=== PATIENT | male | born 1960 | race Caucasian/White ===

== ENCOUNTER 2019-08-04 21:19 | Observation (INO) | payer OTHER ==
[~2019-08-04] VITALS: Ht 185.5 cm; Wt 110.6 kg
[2019-08-04] MEDS ORDERED: NITROGLYCERIN 0.4 MG SL TABS BTL 25'S SL ONE (21:38)
[2019-08-04] MEDS ORDERED: ASPIRIN 81 MG CHEW (CHILDREN'S ASA) ONE (21:38)
[2019-08-04] MEDS: NITROGLYCERIN 0.4 MG SL TABS BTL 25'S SL PRN ×3 (21:43→21:53)
[2019-08-04] MEDS ORDERED: ASPIRIN 81 MG CHEW (CHILDREN'S ASA) PO ONE (21:45)
--- NOTE | 2019-08-04 21:48 | ED Chest Pain ---
General Chief Complaint: Chest Pain Stated Complaint: ELEV BP,TIGHTNESS IN CHEST Source: patient (SOMEWHAT VAGUE/DOWNPLAYS SYMPTOMS) History of Present Illness Date Seen by Provider: Aug 04, 2019 Time Seen by Provider: 21:26 Initial Comments PT ARRIVES VIA POV STATES HE "JUST DOESN'T FEEL GOOD" STATES HE WAS AT THE FOOTBALL GAME ALL DAY, AND WAS HOT ALL AFTERNOON ( TEMP IN 60'S ALL DAY AND PARTLY CLOUDY ) STATES AROUND 2000 TONIGHT, HE STARTED "FEELING BAD" STATES HE STARTED FEELING NAUSEATED AFTER HE ATE STARTED TO GET HEAVINESS IN HIS CHEST, AND PAIN IN HIS LEFT ARM PIT, ALSO HAVING LEFT JAW PAIN RATES PAIN 2/10 NOTHING WORSENS OR IMPROVES PAIN NO SHORTNESS OF BREATH NO SWEATS, JUST "FEELS HOT" NO PALPITATIONS NO DIZZINESS NO SYNCOPE NO SWELLING IN LEGS/ FEET OR PAIN IN CALVES PT HAS HAD A FEW BEERS TODAY--APPROXIMATELY 3, WITH LAST ETOH AROUND 1700 TONIGHT HAD SIMILAR SYMPTOMS ON Tuesday08/02/19, LASTED SEVERAL HOURS. DID NOT SEEK CARE AT THAT TIME STATES HIS BP WAS 138/91 AT THAT TIME NO HISTORY OF SIMILAR SYMPTOMS PRIOR TO THE LAST 2 DAYS NO HISTORY OF CARDIAC PROBLEMS, OTHER THAN HTN--DENIES MISSED DOSES OF MEDICATION HAD A NORMAL STRESS TEST MANY YEARS AGO. PCP: DR. FRANCIS--HAD ROUTINE EXAM 1 1/2 WEEKS AGO. NO MEDICATION CHANGES. Allergies and Home Medications Allergies Coded Allergies: Sulfa (Sulfonamide Antibiotics) (Verified Allergy, Unknown, 08/04/19) Review of Systems Review of Systems Constitutional: see HPI; No chills, No diaphoresis, No dizziness, No fever, No malaise, No weakness EENTM: No Symptoms Reported Respiratory: No Symptoms Reported; Denies Cough, Denies Orthopnea, Denies Shortness of Air, Denies SOA With Exertion Cardiovascular: See HPI, Chest Pain; Denies Edema, Denies Irregular Heart Rate, Denies Lightheadedness, Denies Palpitations, Denies Syncope Gastrointestinal: See HPI; Denies Abdominal Pain; Nausea; Denies Vomiting Genitourinary: No Symptoms Reported Musculoskeletal: see HPI (LEFT AXILLARY PAIN); No back pain Skin: no symptoms reported Psychiatric/Neurological: Headache (EARLIER THIS EVENING--TOOK 4 ADVIL AROUND 2000 TONIGHT--HEADACHE IS GONE); Denies Numbness, Denies Paresthesia, Denies Seizure, Denies Tingling Endocrine: No Symptoms Reported Hematologic/Lymphatic: No Symptoms Reported Past Vtdliir-Orzysa-Onpfiu Hx Patient Social History Alcohol Use: Occasionally Uses Recreational Drug Use: No Smoking Status: Never a Smoker Recent Foreign Travel: No Contact w/Someone Who Travel: No Seasonal Allergies Seasonal Allergies: Yes Past Medical History Surgeries: Yes (BILATERAL INGUINAL HERNIA REPAIR) Appendectomy Respiratory: No Cardiac: Yes Hypertension Neurological: No Genitourinary: No Gastrointestinal: Yes (BILATERAL INGUINAL HERNIA REPAIR) Abdominal Hernia Musculoskeletal: No Endocrine: No HEENT: Yes Macular Degeneration Cancer: No Psychosocial: No Integumentary: No Blood Disorders: No Physical Exam Vital Signs Capillary Refill : Height, Weight, BMI Height: '" Weight: lbs. oz. kg; BMI Method: General Appearance: No Apparent Distress, WD/WN HEENT: PERRL/EOMI, Other (NO JAW TENDERNESS) Neck: Full Range of Motion, Normal Inspection, Non Tender, Supple; No Carotid Bruit, No JVD Respiratory: Chest Non Tender, Normal Breath Sounds, No Accessory Muscle Use, No Respiratory Distress Cardiovascular: Regular Rate, Rhythm, No Edema, No Gallop, No JVD, No Murmur, Normal Peripheral Pulses, Extra Beats (OCCASIONAL ECTOPY C/W WITH PVC'S ON MONITOR) Gastrointestinal: Normal Bowel Sounds, No Organomegaly, No Pulsatile Mass, Non Tender, Soft Extremity: Normal Capillary Refill, Normal Inspection, Normal Range of Motion, Non Tender, No Calf Tenderness, No Pedal Edema Neurologic/Psychiatric: Alert, Oriented x3, No Motor/Sensory Deficits, Normal Mood/Affect, guest associate II-XII Norm as Tested Skin: Normal Color, Warm/Dry Progress/Results/Core Measures Results/Orders Lab Results Laboratory Tests Test 08/04/19 21:32 Range/Units White Blood Count 8.1 4.3-11.0 10^3/uL Red Blood Count 4.76 4.35-5.85 10^6/uL Hemoglobin 15.1 13.3-17.7 G/DL Hematocrit 43 40-54 % Mean Corpuscular Volume 90 80-99 FL Mean Corpuscular Hemoglobin 32 25-34 PG Mean Corpuscular Hemoglobin Concent 35 32-36 G/DL Red Cell Distribution Width 13.0 10.0-14.5 % Platelet Count 297 130-400 10^3/uL Mean Platelet Volume 8.9 7.4-10.4 FL Neutrophils (%) (Auto) 57 42-75 % Lymphocytes (%) (Auto) 32 12-44 % Monocytes (%) (Auto) 8 0-12 % Eosinophils (%) (Auto) 3 0-10 % Basophils (%) (Auto) 0 0-10 % Neutrophils # (Auto) 4.6 1.8-7.8 X 10^3 Lymphocytes # (Auto) 2.6 1.0-4.0 X 10^3 Monocytes # (Auto) 0.6 0.0-1.0 X 10^3 Eosinophils # (Auto) 0.3 0.0-0.3 10^3/uL Basophils # (Auto) 0.0 0.0-0.1 10^3/uL Prothrombin Time 12.2 12.2-14.7 SEC INR Comment 0.9 0.8-1.4 Activated Partial Thromboplast Time 30 24-35 SEC Sodium Level 139 135-145 MMOL/L Potassium Level 4.0 3.6-5.0 MMOL/L Chloride Level 102 98-107 MMOL/L Carbon Dioxide Level 22 21-32 MMOL/L Anion Gap 15 H 5-14 MMOL/L Blood Urea Nitrogen 19 H 7-18 MG/DL Creatinine 1.06 0.60-1.30 MG/DL Estimat Glomerular Filtration Rate > 60 BUN/Creatinine Ratio 18 Glucose Level 102 70-105 MG/DL Calcium Level 9.8 8.5-10.1 MG/DL Corrected Calcium 9.6 8.5-10.1 MG/DL Magnesium Level 2.1 1.6-2.4 MG/DL Total Bilirubin 0.4 0.1-1.0 MG/DL Aspartate Amino Transf (AST/SGOT) 28 5-34 U/L Alanine Aminotransferase (ALT/SGPT) 51 0-55 U/L Alkaline Phosphatase 57 40-136 U/L Total Creatine Kinase 251 H 30-200 U/L Total Protein 7.7 6.4-8.2 GM/DL Albumin 4.3 3.2-4.5 GM/DL Amylase Level 73 25-125 U/L Lipase 41 8-78 U/L My Orders Orders - SHAYNA ANDREWS DO Nitroglycerin 0.4 Mg Btl 25's (Nitrostat (08/04/19 21:38) Aspirin Chewable Tablet (Baby Aspirin Ch (08/04/19 21:38) Cbc With Automated Diff (08/04/19 21:37) Magnesium (08/04/19 21:37) Chest 1 View, Ap/Pa Only (08/04/19 21:37) Ekg Tracing (08/04/19 21:37) Cardiac Profile 1 (08/04/19 21:37) Comprehensive Metabolic Panel (08/04/19 21:37) Myoglobin Serum (08/04/19 21:37) Protime With Inr (08/04/19 21:37) Partial Thromboplastin Time (08/04/19 21:37) O2 (08/04/19 21:37) Monitor-Rhythm Ecg Trace Only (08/04/19:37) Lipid Panel (08/05/19 06:00) Ed Iv/Invasive Line Start (08/04/19 21:37) Creatine Kinase (08/04/19 21:37) Creatine Kinase Mb (08/04/19 21:37) Lipase (08/04/19 21:37) Amylase (08/04/19 21:37) BNP (08/04/19 21:37) Nitroglycerin 0.4 Mg Btl 25's (Nitrostat (08/04/19 21:45) Aspirin Chewable Tablet (Baby Aspirin Ch (08/04/19 21:45) Ondansetron Injection (Zofran Injectio (08/04/19 22:00) Ed Iv/Invasive Line Start (08/04/19 22:04) Ns Iv 1000 Ml (Sodium Chloride 0.9%) (08/04/19 22:04) Ns Iv 1000 Ml (Sodium Chloride 0.9%) (08/04/19 22:04) Medications Given in ED Current Medications Medications Dose Ordered Sig/Shemar Route Start Time Stop Time Status Last Admin Dose Admin Aspirin 324 mg ONCE ONCE PO 08/04/19 21:45 08/04/19 21:46 DC 08/04/19 21:42 324 MG Nitroglycerin 0.4 mg UD PRN SL 08/04/19 21:45 08/04/19 21:53 DC 08/04/19 21:53 0.4 MG Ondansetron HCl 4 mg ONCE ONCE IVP 08/04/19 22:00 08/04/19 22:01 DC 08/04/19 21:55 4 MG Progress Progress Note : Progress Note GIVEN ASPIRIN AND NTG X 3 WITH SOME IMPROVEMENT IN PAIN, BUT HAD BP DROP AFTER 3RD NTG, TO 80'S SYSTOLIC. NOW WITH C/O HEADACHE. BP UP IMMEDIATELY TO 118/86 WITH LAYING PT FLAT. Initial ECG Impression Date: Aug 04, 2019 Initial ECG Impression Time: 21:27 Initial ECG Rate: 79 Initial ECG Rhythm: Normal Sinus (PVC) Initial ECG Comparisson: No Previous ECG Available Diagnostic Imaging Comments CXR-- Reviewed: Reviewed by Me Departure Departure-Patient Inst. Referrals: SARAH FRANCIS MD (PCP) Primary Care Physician SHAYNA ANDREWS DO Aug 04, 2019 21:48
[2019-08-04 21:54] LABS: BASOPHILS % (AUTO) 0 % (0-10); EOSINOPHILS # (AUTO) 0.3 10^3/uL (0.0-0.3); EOSINOPHILS % (AUTO) 3 % (0-10); HEMATOCRIT 43 % (40-54); HEMOGLOBIN 15.1 G/DL (13.3-17.7); LYMPHOCYTES # (AUTO) 2.6 X 10^3 (1.0-4.0); LYMPHOCYTES % (AUTO) 32 % (12-44); MEAN CORPUSCULAR HEMOGLOBIN 32 PG (25-34); MEAN CORPUSCULAR HGB CONC 35 G/DL (32-36); MEAN CORPUSCULAR VOLUME 90 FL (80-99); MEAN PLATELET VOLUME 8.9 FL (7.4-10.4); MONOCYTES # (AUTO) 0.6 X 10^3 (0.0-1.0); MONOCYTES % (AUTO) 8 % (0-12); NEUTROPHILS # (AUTO) 4.6 X 10^3 (1.8-7.8); NEUTROPHILS % (AUTO) 57 % (42-75); PLATELET COUNT 297 10^3/uL (130-400); WHITE BLOOD COUNT 8.1 10^3/uL (4.3-11.0)
[2019-08-04 21:59] LABS: INR 0.9 (0.8-1.4); PROTHROMBIN TIME PATIENT 12.2 SEC (12.2-14.7)
[2019-08-04] MEDS ORDERED: ONDANSETRON 4 MG/2 ML (SDV) Z0FRAN IVP ONE (22:00)
[2019-08-04] MEDS ORDERED: NS IV 1000 ML 1,000 ML ONE (22:04)
[2019-08-04] MEDS ORDERED: NS IV 1000 ML 1,000 ML IV SCH (22:04)
[2019-08-04 22:06] LABS: ALANINE AMINOTRANSFERASE 51 U/L (0-55); ALBUMIN 4.3 GM/DL (3.2-4.5); ALKALINE PHOSPHATASE 57 U/L (40-136); AMYLASE 73 U/L (25-125); BILIRUBIN,TOTAL 0.4 MG/DL (0.1-1.0); BUN/CREATININE RATIO 18; CALCIUM 9.8 MG/DL (8.5-10.1); CARBON DIOXIDE 22 MMOL/L (21-32); CHLORIDE 102 MMOL/L (98-107); CREATINE KINASE 251 U/L (30-200); CREATININE SERUM 1.06 MG/DL (0.60-1.30); GFR ESTIMATED > 60; GLUCOSE 102 MG/DL (70-105); LIPASE 41 U/L (8-78); MAGNESIUM 2.1 MG/DL (1.6-2.4); SODIUM 139 MMOL/L (135-145); TOTAL PROTEIN 7.7 GM/DL (6.4-8.2)
[2019-08-04 22:12] LABS: CREATINE KINASE MB 5.9 NG/ML (<6.6)
--- NOTE | 2019-08-04 22:12 | Diagnostic Imaging Report ---
Clinical indication: Patient with chest pain. Exam: Portable chest x-ray upright view. Comparisons: None. Findings: Lungs/pleura: There is mild bibasilar atelectasis. Otherwise, lungs are clear. There is no pneumothorax. There is no pleural effusion. Mediastinum: Unremarkable. Pulmonary vasculature: Unremarkable. Heart: Unremarkable. Bones/extrathoracic soft tissue: Unremarkable. Impression: There is mild bibasilar atelectasis. There is no radiographic evidence of acute cardiopulmonary process. Dictated by: Dictated on workstation # [id number]
[2019-08-04] MEDS ORDERED: ENOXAPARIN 60 MG/0.6 ML (LOVENOX) SYR SC ONE (22:45)
[2019-08-04] MEDS ORDERED: meTOproloL SUCCINATE 50 MG (TOPROL XL) TAB PO SCH (22:45)
[2019-08-04 23:46] VITALS: BP 125/81
[2019-08-04 23:55] VITALS: BP 132/84
[2019-08-05] VITALS (13 sets, daily range): BP systolic 117–161; BP diastolic 69–104
[2019-08-05] MEDS ORDERED: morphine INJ 4 MG/ML 1 ML (VIAL/SYRINGE) IV PRN (00:30)
[2019-08-05] MEDS ORDERED: NITROGLYCERIN 0.4 MG SL TABS BTL 25'S SL PRN (00:30)
[2019-08-05 04:37] LABS: BASOPHILS % (AUTO) 0 % (0-10); EOSINOPHILS # (AUTO) 0.2 10^3/uL (0.0-0.3); EOSINOPHILS % (AUTO) 3 % (0-10); HEMATOCRIT 42 % (40-54); LYMPHOCYTES # (AUTO) 1.7 X 10^3 (1.0-4.0); LYMPHOCYTES % (AUTO) 27 % (12-44); MEAN CORPUSCULAR HEMOGLOBIN 31 PG (25-34); MEAN CORPUSCULAR HGB CONC 34 G/DL (32-36); MEAN CORPUSCULAR VOLUME 91 FL (80-99); MEAN PLATELET VOLUME 8.8 FL (7.4-10.4); MONOCYTES # (AUTO) 0.5 X 10^3 (0.0-1.0); MONOCYTES % (AUTO) 8 % (0-12); NEUTROPHILS # (AUTO) 4.1 X 10^3 (1.8-7.8); NEUTROPHILS % (AUTO) 63 % (42-75); PLATELET COUNT 257 10^3/uL (130-400); RED CELL DISTRIBUTION WIDTH 13.2 % (10.0-14.5); WHITE BLOOD COUNT 6.5 10^3/uL (4.3-11.0)
[2019-08-05 04:54] LABS: PROTHROMBIN TIME PATIENT 13.7 SEC (12.2-14.7)
[2019-08-05 05:03] LABS: ALANINE AMINOTRANSFERASE 44 U/L (0-55); ALBUMIN 3.8 GM/DL (3.2-4.5); ALKALINE PHOSPHATASE 50 U/L (40-136); BILIRUBIN,TOTAL 0.4 MG/DL (0.1-1.0); BUN/CREATININE RATIO 18; CALCIUM 8.9 MG/DL (8.5-10.1); CARBON DIOXIDE 24 MMOL/L (21-32); CHLORIDE 106 MMOL/L (98-107); CHOLESTEROL 184 MG/DL (< 200); CREATINE KINASE 199 U/L (30-200); CREATININE SERUM 0.85 MG/DL (0.60-1.30); GFR ESTIMATED > 60; GLUCOSE 102 MG/DL (70-105); HDL CHOLESTEROL 38 MG/DL (40-60); SODIUM 140 MMOL/L (135-145); TOTAL PROTEIN 6.3 GM/DL (6.4-8.2); TRIGLYCERIDES 178 MG/DL (<150); VLDL CHOLESTEROL 36 MG/DL (5-40)
[2019-08-05] MEDS ORDERED: ENOXAPARIN 60 MG/0.6 ML (LOVENOX) SYR SC ONE (07:00)
[2019-08-05] MEDS ORDERED: diphenhydrAMINE 25 MG TAB (BENADRYL) PO PRN (07:15)
[2019-08-05] MEDS ORDERED: POLYETHYLENE GLYCOL 17 GM (MIRALAX) PACK PO PRN (07:15)
[2019-08-05] MEDS ORDERED: ASPI-983 PO (07:18)
[2019-08-05] MEDS ORDERED: AMLO-332 PO (07:18)
[2019-08-05] MEDS ORDERED: METO-370 PO (07:18)
[2019-08-05 07:23] LABS: BILIRUBIN,URINE NEGATIVE (NEGATIVE); CLARITY,URINE CLEAR; COLOR,URINE YELLOW; GLUCOSE, URINE (UA) NEGATIVE (NEGATIVE); KETONES,URINE NEGATIVE (NEGATIVE); LEUKOCYTE ESTERASE ,URINE NEGATIVE (NEGATIVE); NITRITE,URINE NEGATIVE (NEGATIVE); PH,URINE 6 (5-9); PROTEIN,URINE NEGATIVE (NEGATIVE)
[2019-08-05] MEDS: ACETAMINOPHEN 325 MG TABLET PO PRN ×2 (07:25→21:09)
[2019-08-05 07:31] LABS: BACTERIA,URINE NEGATIVE /HPF; SQUAMOUS EPITHELIAL CELL,UR RARE /HPF; URINE OTHER FEW SPERM /HPF
--- NOTE | 2019-08-05 08:55 | NUR ---
spoke with dr. armstrong to stated to hold lovenox this morning until he see's pt.
[2019-08-05] MEDS: amLODIPine 5 MG (NORVASC) TAB PO SCH (09:00)
[2019-08-05] MEDS: meTOproloL SUCCINATE 50 MG (TOPROL XL) TAB PO SCH (09:00)
[2019-08-05] MEDS: ASPIRIN E.C. 81 MG (ECOTRIN) TAB PO SCH (09:00)
--- NOTE | 2019-08-05 13:01 | Consultation-Cardiology ---
HPI-Cardiology Cardiology Consultation: Date of Consultation 08/05/19 Time Seen by a Provider: 12:45 Date of Admission Attending Physician Joe Gruber MD Admitting Physician Joe Gruber MD Consulting Physician VON SPEARS MD, MA, FACP, FACC, FSCAI, CCDS HPI: Chief Complaint: CC: Chest discomfort HPI: 59 yo man admitted through ER on 08/04/[address] Busby for chest discomfort: first episode on 08/02/19, second episode on 08/04/19, knot in the upper stomach and across lower chest, some radiation to L arm and L jaw, lasting several hours on each occasion, mild, w/o aggravating or relieving factors, associated a feeling of flushing, bp was elevated on each occasion to approx 140/90. Minimal epigastric discomfort at this time. Denies palp or shortness of breath or syncope or ankle swelling. Review of Systems-Cardiology Review of Systems Constitutional: No malaise, No tiredness, No weight gain Eyes: No vision change Ears/Nose/Throat: No ear discharge, No nasal drainage, No recent hearing loss Respiratory: As described under HPI Cardiovascular: As described under HPI Gastrointestinal: No constipation, No diarrhea, No nausea, No vomiting Genitourinary: No dysuria, No hematuria, No urine frequency changes Musculoskeletal: No back pain, No joint pain Skin: No rash, No ulcerations Psychiatric/Neurological: No seizure, No focal weakness, No syncope Hematologic: No bleeding abnormalities KHL-Iksger-Rzoxfp Hx Patient Social History Alcohol Use: Occasionally Uses Recreational Drug Use: No Smoking Status: Never a Smoker Recent Foreign Travel: No Recent Infectious Disease Expo: No Hospitalization with Isolation: Denies Immunizations Up To Date Date of Influenza Vaccine: Jul 22, 2019 Past Medical History PMH As described under Assessment. Family Medical History Family Medical History: Father of ID at age 59 Allergies and Home Medications Allergies Coded Allergies: Sulfa (Sulfonamide Antibiotics) (Verified Allergy, Unknown, 08/04/19) Home Medications Amlodipine/Atorvastatin 1 Each Tablet, 1 EACH PO HS Prescribed by: MIKE BUSBY on 08/05/19717 Aspirin 81 Mg Tablet.dr, 81 MG PO DAILY Prescribed by: MIKE BUSBY on 08/05/19717 Metoprolol Succinate 50 Mg Tab.er.24h, 50 MG PO DAILY Prescribed by: MIKE BUSBY on 08/05/19717 Patient Home Medication List Home Medication List Reviewed: Yes Physical Exam-Cardiology Physical Exam Vital Signs/I&O 08/05/19 08/05/19 08/05/19 08/05/19 01:02 02:02 03:02 04:00 Temp 36.6 Pulse 70 59 61 70 Resp 18 18 18 18 B/P (MAP) 141/76 (97) 123/75 (91) 143/94 (110) 161/104 (123) Pulse Ox 94 96 96 96 O2 Delivery Nasal Cannula Nasal Cannula Nasal Cannula Nasal Cannula O2 Flow Rate 2.00 2.00 2.00 2.00 08/05/19 08/05/19 08/05/19 08/05/19 04:00 05:02 07:00 08:00 Pulse 58 57 Resp 18 B/P (MAP) 117/70 (86) Pulse Ox 95 96 95 O2 Delivery Nasal Cannula Nasal Cannula Nasal Cannula O2 Flow Rate 2.00 2.00 2.00 08/05/19 08/05/19 08/05/19 08:00 11:37 12:53 Temp 37.0 Pulse 60 65 Resp 20 B/P (MAP) 157/93 (114) Pulse Ox 95 94 O2 Delivery Room Air Room Air O2 Flow Rate 2.00 Capillary Refill : Less Than 3 Seconds Constitutional: AAO x 3, well-developed, well-nourished HEENT: PERRL, EOMI, hearing is well preserved; No xanthelasmas are seen Neck: carotid pulses are 2 + bilaterally, with good upstrokes Respiratory: No accessory muscle use; lungs clear to percussion, lungs clear to auscultation Cardiovascular: regular rate-rhythm, S1 and S2, systolic murmur (faint KAREN at cardiac base) Gastrointestinal: No tender; soft; No guarding, No rebound; audible bowel sounds Extremities: No clubbing, No cyanosis, No significant edema Neurologic/Psychiatric: oriented x 3, grossly intact, power is 5/5 both on sides Skin: No rash on exposed areas, No ulcerations on exposed areas Data Review Labs Laboratory Tests 08/04/19 21:32: White Blood Count 8.1, Red Blood Count 4.76, Hemoglobin 15.1, Hematocrit 43, Mean Corpuscular Volume 90, Mean Corpuscular Hemoglobin 32, Mean Corpuscular Hemoglobin Concent 35, Red Cell Distribution Width 13.0, Platelet Count 297, Mean Platelet Volume 8.9, Neutrophils (%) (Auto) 57, Lymphocytes (%) (Auto) 32, Monocytes (%) (Auto) 8, Eosinophils (%) (Auto) 3, Basophils (%) (Auto) 0, Neutrophils # (Auto) 4.6, Lymphocytes # (Auto) 2.6, Monocytes # (Auto) 0.6, Eosinophils # (Auto) 0.3, Basophils # (Auto) 0.0, Prothrombin Time 12.2, INR Comment 0.9, Activated Partial Thromboplast Time 30, Sodium Level 139, Potassium Level 4.0, Chloride Level 102, Carbon Dioxide Level 22, Anion Gap 15H, Blood Urea Nitrogen 19H, Creatinine 1.06, Estimat Glomerular Filtration Rate > 60, BUN/Creatinine Ratio 18, Glucose Level 102, Calcium Level 9.8, Corrected Calcium 9.6, Magnesium Level 2.1, Total Bilirubin 0.4, Aspartate Amino Transf (AST/SGOT) 28, Alanine Aminotransferase (ALT/SGPT) 51, Alkaline Phosphatase 57, Total Creatine Kinase 251H, Creatine Kinase MB 5.9, Myoglobin 63.3, Troponin I < 0.028, B-Type Natriuretic Peptide < 10.0, Total Protein 7.7, Albumin 4.3, Amylase Level 73, Lipase 41 08/05/19 04:23: White Blood Count 6.5, Red Blood Count 4.58, Hemoglobin 14.0, Hematocrit 42, Mean Corpuscular Volume 91, Mean Corpuscular Hemoglobin 31, Mean Corpuscular Hemoglobin Concent 34, Red Cell Distribution Width 13.2, Platelet Count 257, Mean Platelet Volume 8.8, Neutrophils (%) (Auto) 63, Lymphocytes (%) (Auto) 27, Monocytes (%) (Auto) 8, Eosinophils (%) (Auto) 3, Basophils (%) (Auto) 0, Neutrophils # (Auto) 4.1, Lymphocytes # (Auto) 1.7, Monocytes # (Auto) 0.5, Eosinophils # (Auto) 0.2, Basophils # (Auto) 0.0, Prothrombin Time 13.7, INR Comment 1.0, Activated Partial Thromboplast Time 39H, Sodium Level 140, Potassium Level 4.0, Chloride Level 106, Carbon Dioxide Level 24, Anion Gap 10, Blood Urea Nitrogen 15, Creatinine 0.85, Estimat Glomerular Filtration Rate > 60, BUN/Creatinine Ratio 18, Glucose Level 102, Calcium Level 8.9, Corrected Calcium 9.1, Total Bilirubin 0.4, Aspartate Amino Transf (AST/SGOT) 22, Alanine Aminotransferase (ALT/SGPT) 44, Alkaline Phosphatase 50, Total Creatine Kinase 199, Myoglobin 65.1, Troponin I < 0.028, Total Protein 6.3L, Albumin 3.8, Triglycerides Level 178H, Cholesterol Level 184, LDL Cholesterol Direct 128, VLDL Cholesterol 36, HDL Cholesterol 38L 08/05/19 07:00: Urine Color YELLOW, Urine Clarity CLEAR, Urine pH 6, Urine Specific [place] 1.020, Urine Protein NEGATIVE, Urine Glucose (UA) NEGATIVE, Urine Ketones NEGATIVE, Urine Nitrite NEGATIVE, Urine Bilirubin NEGATIVE, Urine Urobilinogen NORMAL, Urine Leukocyte Esterase NEGATIVE, Urine RBC (Auto) NEGATIVE, Urine RBC NONE, Urine WBC NONE, Urine Squamous Epithelial Cells RARE, Urine Crystals NONE, Urine Bacteria NEGATIVE, Urine Casts NONE, Urine Mucus NEGATIVE, Urine Other FEW SPERMH, Urine Culture Indicated NO Laboratory Tests 08/04/19 21:32 08/05/19 04:23 A/P-Cardiology Assessment/Admission Diagnosis Chest discomfort w/o any evidence of ACS Hypertension Hyperlipidemia Impaired fasting glucose Elevated BMI of approx 32 Family history of early CAD Discussion and Recomendations * Given nonspecific symptoms (still notes some epigastric discomfort) in the setting of multiple CAD risk factors, we recommend MPI for cor eval and echo for eval for structural heart disease * Modify risk factors: treat htn and hyperlipidemia; advised efforts at wgt loss to lower his risk of DM II * Advised sleep studies * Empiric treatment for suspected GERD Clinical Quality Measures AMI/AHF: ASA po Prior to arrival: No DVT/VTE Risk/Contraindication: Risk Factor Score Per Nursin RFS Level Per Nursing on Admit: 3=High VON SPEARS MD FAC FAC CCDS Aug 05, 2019 13:01
[2019-08-05] MEDS ORDERED: REGADENOSON 0.4 MG/5 ML SYR (LEXISCAN) IV ONE (13:15)
[2019-08-05] MEDS ORDERED: PANTOPRAZOLE 40 MG (PROTONIX) TAB PO ONE (13:15)
--- NOTE | 2019-08-05 14:30 | History & Physical-Hospitalist ---
History of Present Illness HPI/Chief Complaint Marko Mcclain is a 59-year-old male with past medical history of hypertension who presented with chest pain. He reports that the pain was in his epigastric region and radiated up toward his neck. He reports that he had been drinking some beers and had eaten fried pickles and had issues of belching as well. He denies any associated shortness of breath, nausea, or diaphoresis. He is a nonsmoker. He has no history of coronary artery disease. His father of a heart attack at the age of 59. Source: patient Exam Limitations: no limitations Date Seen 08/05/19 Time Seen by a Provider: 09:45 Attending Physician Joe Gruber MD PCP Joe Gruber MD Referring Physician Date of Admission Aug 04, 2019 at 22:35 Home Medications & Allergies Home Medications Reviewed patient Home Medication Reconciliation performed by pharmacy medication reconciliations poured concrete wall technician and/or nursing. Patients Allergies have been reviewed. Allergies Allergies Coded Allergies Sulfa (Sulfonamide Antibiotics) (Verified Allergy, Unknown, 08/04/19) Past Gnugepu-Ciavxs-Hwuvhl Hx Past Med/Social Hx: Reviewed Nursing Past Med/Soc Hx Patient Social History Alcohol Use: Occasionally Uses Recreational Drug Use: No Smoking Status: Never a Smoker Recent Foreign Travel: No Contact w/other who traveled: No Recent Infectious Disease Expo: No Immunizations Up To Date Date of Influenza Vaccine: Jul 22, 2019 Seasonal Allergies Seasonal Allergies: Yes Past Medical History Surgeries: Appendectomy Cardiac: Hypertension Gastrointestinal: Abdominal Hernia HEENT: Macular Degeneration History of Blood Disorders: No Review of Systems Constitutional: no symptoms reported EENTM: no symptoms reported Respiratory: no symptoms reported Cardiovascular: chest pain Gastrointestinal: heartburn Musculoskeletal: no symptoms reported Skin: no symptoms reported Psychiatric/Neurological: No Symptoms Reported Physical Exam Physical Exam Vital Signs Vital Signs - First Documented 08/04/19 08/04/19 21:20 21:55 Temp 36.9 Pulse 83 Resp 16 B/P (MAP) 168/122 (137) Pulse Ox 95 O2 Delivery Nasal Cannula O2 Flow Rate 2.00 FiO2 95 Capillary Refill : Less Than 3 Seconds Height, Weight, BMI Height: '" Weight: lbs. oz. kg; 32.78 BMI Method: General Appearance: No Apparent Distress, WD/WN HEENT: PERRL/EOMI, Pharynx Normal Neck: Normal Inspection, Supple Respiratory: Lungs Clear, Normal Breath Sounds, No Respiratory Distress Cardiovascular: Regular Rate, Rhythm, No Edema, No Murmur Gastrointestinal: Normal Bowel Sounds, Non Tender, Soft Extremity: Normal Inspection, Non Tender, No Pedal Edema Neurologic/Psychiatric: Alert, Oriented x3, No Motor/Sensory Deficits, Normal Mood/Affect Skin: Normal Color, Warm/Dry Lymphatic: No Adenopathy Results Results/Procedures Labs Laboratory Tests 08/04/19 21:32 08/05/19 04:23 Patient resulted labs reviewed. Imaging: Reviewed Imaging Report Assessment/Plan Admission Diagnosis Chest pain Admission Status: Observation Reason for Inpatient Admission: Chest pain, rule out ACS Assessment and Plan Chest pain HTN HLD Family history of heart disease EKG revealed normal sinus rhythm without concerning changes Troponin negative 2 Received aspirin in the emergency room Started on Toprol daily Begin low-dose amlodipine for hypertension Begin Lipitor for hypercholesterolemia Started on therapeutic Lovenox Heart score 4: Moderately suspicious, risk factors (hypertension, hyperlipidemia, family history), and age Cardiology consulted, planning for stress test tomorrow GERD -Start Pantoprazole DVT Prophylaxis: Receiving therapeutic Lovenox Diagnosis/Problems Diagnosis/Problems (1) Chest pain Status: Acute (2) GERD (gastroesophageal reflux disease) Status: Chronic Qualifiers: Esophagitis presence: esophagitis presence not specified Qualified Codes: K21.9 - Gastro-esophageal reflux disease without esophagitis (3) HLD (hyperlipidemia) Status: Chronic Qualifiers: Hyperlipidemia type: mixed hyperlipidemia Qualified Codes: E78.2 - Mixed hyperlipidemia (4) Family history of coronary artery disease (5) HTN (hypertension) Status: Chronic Qualifiers: Hypertension type: essential hypertension Qualified Codes: I10 - Essential (primary) hypertension Clinical Quality Measures AMI/AHF: ASA po Prior to arrival: No DVT/VTE Risk/Contraindication: Risk Factor Score Per Nursin RFS Level Per Nursing on Admit: 3=High MIKE MILIAN MD Aug 05, 2019 14:30
[2019-08-06] VITALS: BP 124/79
[2019-08-06 04:00] VITALS: BP 137/82
[2019-08-06 08:30] VITALS: BP 138/84
[2019-08-06] MEDS ORDERED: PANTOPRAZOLE 40 MG (PROTONIX) TAB PO SCH (09:00)
[2019-08-06] MEDS ORDERED: ASPI-983 PO (09:19)
[2019-08-06] MEDS ORDERED: CETI10TA20 PO (09:19)
[2019-08-06] MEDS ORDERED: IRBE150T26 PO (09:19)
[2019-08-06] MEDS ORDERED: VIT1CAPS44 PO (09:19)
--- NOTE | 2019-08-06 09:22 | NUR ---
SPOKE WITH THE PATIENT ABOUT HIS MEDICATIONS. HE STATES THE FLONASE HE RECENTLY FILLED WAS A SHORT TERM THING AND HE DOES NOT PLAN TO USE IT CONTINUOUSLY. HE TAKES PRESERVISION BID, ASPIRIN 81MG HS, AND ZYRTEC 10MG HS OTC. HE TAKES ONE BLOOD PRESSURE MEDICATION THAT I VERIFIED WITH THE EXT MED HX.
[2019-08-06] MEDS ORDERED: CATHETER FLUSH 10 ML SYR IV PRN (11:00)
--- NOTE | 2019-08-06 11:45 | NUR ---
Contacted by local Animal Control Officer who advised he had visited and anointed pt.
--- NOTE | 2019-08-06 13:04 | Discharge Summary ---
Diagnosis/Chief Complaint Date of Admission Aug 04, 2019 at 22:35 Date of Discharge Discharge Date: Aug 06, 2019 Admission Diagnosis Chest pain Primary Care Discharge Diagnosis (1) Chest pain Status: Acute (2) GERD (gastroesophageal reflux disease) Status: Chronic (3) HLD (hyperlipidemia) Status: Chronic (4) Family history of coronary artery disease (5) HTN (hypertension) Status: Chronic Discharge Summary Procedures/Consulations Dr Pillai- Cardiology Discharge Physical Exam Allergies: Coded Allergies: Sulfa (Sulfonamide Antibiotics) (Verified Allergy, Unknown, 08/04/19) Vitals & I&Os Vital Signs Date Time Temp Pulse Resp B/P (MAP) Pulse Ox O2 Delivery O2 Flow Rate FiO2 08/06/19 16:00 Room Air 08/06/19 16:00 37.2 85 17 127/77 (94) 93 08/05/19 23:50 2.00 08/05/19 00:00 95 General Appearance: No Apparent Distress, WD/WN Neurologic/Psychiatric: Alert, Oriented x3 Hospital Course Pt is a 59yoCM who was admitted for atypical chest pain for ACS rule out. Troponins were trended and were negative and he underwent stress testing given his risk factors. Stress test was done and was negative. He was discharged home in stable condition. Fasting lipids revealed an elevated LDL and he was started on a statin. Chest pain was thought to be due to GI causes and he was started on a trial of PPI. If continued RUQ usg may be worthwhile as he did report worsening of pain after eating. He is to follow up with his PCP. Labs (last 24 hrs) Patient resulted labs reviewed. Imaging: Reviewed Imaging Report Discussion & Recommendations Discharge Planning: <30 minutes discharge planning Discharge Home Medications: Active Scripts Active Reported Zyrtec (Cetirizine HCl) 10 Mg Tablet 10 Mg PO DAILY Aspirin EC (Aspirin) 81 Mg Tablet.dr 81 Mg PO HS Preservision Areds 2 Softgel (Vit C/E/Zn/Coppr/Lutein/Zeaxan) 1 Each Capsule 1 Cap PO BID Irbesartan 150 Mg Tablet 150 Mg PO DAILY Instructions to patient/family Please see electronic discharge instructions given to patient. Clinical Quality Measures AMI/AHF: ASA po Prior to arrival: No DVT/VTE Risk/Contraindication: Risk Factor Score Per Nursin RFS Level Per Nursing on Admit: 3=High Copy Copies To 1: SARAH FRANCIS MD Problem Qualifiers (1) Chest pain: Chest pain type: other chest pain Qualified Codes: R07.89 - Other chest pain (2) GERD (gastroesophageal reflux disease): Esophagitis presence: esophagitis presence not specified Qualified Codes: K21.9 - Gastro-esophageal reflux disease without esophagitis (3) HLD (hyperlipidemia): Hyperlipidemia type: mixed hyperlipidemia Qualified Codes: E78.2 - Mixed hyperlipidemia (4) HTN (hypertension): Hypertension type: essential hypertension Qualified Codes: I10 - Essential (primary) hypertension LAURA ROQUE MD Aug 06, 2019 13:04
--- NOTE | 2019-08-06 13:11 | Discharge Inst-Simple/Standard ---
Discharge Inst-Standard Reconcile Patient Problems Problems Reviewed?: Yes Patient Instructions/Follow Up Plan of Care/Instructions/FU: Please continue to take your medications as written. Please follow up with Dr Gruber to follow up this hospital stay. Activity as Tolerated: Yes Discharge Diet: No Restrictions Return to The Hospital For: Chest pain, shortness of breath, worsening abdominal pain, inability to keep any food down, if you feel you are getting worse. LAURA ROQUE MD Aug 06, 2019 13:10
[2019-08-06] MEDS ORDERED: PANT40TA3 PO (13:12)
[2019-08-06] MEDS ORDERED: ATOR40TA PO (13:12)
[2019-08-06 14:15] VITALS: BP 127/81
[2019-08-06] MEDS: ASPIRIN E.C. 81 MG (ECOTRIN) TAB PO SCH (14:20)
[2019-08-06] MEDS: meTOproloL SUCCINATE 50 MG (TOPROL XL) TAB PO SCH (14:21)
[2019-08-06] MEDS: amLODIPine 5 MG (NORVASC) TAB PO SCH (14:21)
[2019-08-06 16:00] VITALS: BP 127/77
--- NOTE | 2019-08-06 16:19 | STRESS TEST ---
DATE OF SERVICE: 08/06/2019 RESTING AND POSTEXERCISE TECHNETIUM-99M TETROFOSMIN SPECT CT IMAGING CLINICAL DIAGNOSES: Chest pain, hypertension. Baseline images were carried out after injection of 10.25 mCi of technetium-99m Tetrofosmin. This was followed by exercise on a treadmill. Deonte protocol was employed. Heart rate and blood pressure responses to exercise were normal. There was considerable baseline artifact, but there did not appear to be significant ST segment deviation. There did not appear to be significant arrhythmia. Isolated premature ventricular contractions were seen in the recovery phase. The patient tolerated the procedure well and did not report symptoms. Exercise was stopped on account of fatigue. The patient received 32.2 mCi of technetium-99m Tetrofosmin after he had achieved more than 85% of maximum predicted heart rate and the exercise was continued for another minute. He achieved 100% of maximum predicted heart rate. He had attained 12.1 METs of workload. Review of images at rest and following stress show attenuation of the inferolateral wall, both at rest and following exercise. Gated images showed normal global left ventricular systolic function with normal regional wall motion, including the inferolateral wall. There is no distinct evidence of myocardial ischemia or infarction. Gated images show normal global left ventricular systolic function. Left ventricular ejection fraction is 56%. There is no evidence of any transient ischemic dilatation. CONCLUSIONS: 1. No evidence of significant myocardial ischemia or infarction is seen. 2. Normal regional wall motion. 3. Normal global left ventricular systolic function with a calculated ejection fraction of 56%. Job ID: [id number] DocumentID: [id number] Dictated Date: 08/06/2019 16:09:44 Surgical Clinical Reviewer Date: 08/06/2019 16:19:09 Dictated By: VON SPEARS MD, MA, FACP, FACC, MTDD
--- NOTE | 2019-08-06 18:02 | Progress Note - Cardiology ---
Cardiology SOAP Progress Note Subjective: No cp or palp or syncope Wishes to go home Objective: I&O/Vital Signs 08/06/19 08/06/19 08/06/19 08/06/19 06:57 08:00 08:00 08:30 Temp 36.2 Pulse 54 64 Resp 18 B/P (MAP) 138/84 (102) Pulse Ox 96 O2 Delivery Room Air Room Air Room Air 08/06/19 08/06/19 08/06/19 14:15 16:00 16:00 Temp 37.1 37.2 Pulse 66 85 Resp 18 17 B/P (MAP) 127/81 (96) 127/77 (94) Pulse Ox 97 93 O2 Delivery Room Air Room Air Room Air 08/06/19 00:00 Intake Total 1500 ml Output Total 875 ml Balance 625 ml Constitutional: AAO x 3, well-developed, well-nourished Respiratory: No accessory muscle use; lungs clear to percussion, lungs clear to auscultation Cardiovascular: regular rate-rhythm, S1 and S2, systolic murmur (faint KAREN at cardiac base) Gastrointestional: No tender; soft; No guarding, No rebound; audible bowel sounds Extremities: No clubbing, No cyanosis, No significant edema Neurologic/Psychiatric: oriented x 3, grossly intact, power is 5/5 both on sides Skin: No rash on exposed areas, No ulcerations on exposed areas Results/Procedures: Labs Laboratory Tests 08/04/19 21:32 08/05/19 04:23 A/P: Assessment: Chest discomfort w/o any evidence of ACS MPI of 08/06/19: no ischemia or infarction, LVEF 56% Hypertension Hyperlipidemia Impaired fasting glucose Elevated BMI of approx 32 Family history of early CAD Plan: * We recommended and reviewed cor risk factor modification with him * Modify risk factors: treat htn and hyperlipidemia; advised efforts at wgt loss to lower his risk of DM II * Advised sleep studies * Empiric treatment for suspected GERD * F/u at our office in 2 weeks Clinical Quality Measures AMI/AHF: ASA po Prior to arrival: VON Trammell MD FACP FAC CCDS Aug 06, 2019 18:02
[2019-08-06] MEDS ORDERED: ASPIRIN E.C. 81 MG (ECOTRIN) TAB PO SCH (21:00)
[2019-08-07] MEDS ORDERED: MULTIVIT W/MINERALS TAB (THERAGRAN M) PO SCH (07:00)
[2019-08-07] MEDS ORDERED: NON-FORMULARY MEDICATION 1 EA EA (Cetirizine HCl (Zyrtec) 10 MG) PO SCH (09:00)
[2019-08-07] MEDS ORDERED: LORATADINE (CLARITIN) 10 MG TAB PO SCH (09:00)
[2019-08-07] MEDS ORDERED: LOSARTAN 50 MG (COZAAR) TAB PO SCH (09:00)
== END 2019-08-06 18:35 | disposition home or self-care (01) ==
LOC: EDUNIT# 21:19 → ER 21:21 → CSD 22:35
PROVIDERS: ADMIT Internal Medicine; ATTEND Family Medicine
DX: R07.9 Chest pain, unspecified (principal); I10 Essential (primary) hypertension; K21.9 Gastro-esophageal reflux disease without esophagitis; E78.5 Hyperlipidemia, unspecified; Z90.89 Acquired absence of other organs; Z88.2 Allergy status to sulfonamides; Z82.49 Family history of ischemic heart disease and other diseases of the circulatory system
CPT/HCPCS: 36415; 71045; 78452; 80053; 80061; 81000; 82150; 82550; 82553; 83690; 83735; 83874; 83880; 84484; 85025; 85610; 85730; 93005; 93017; 93041; 93306

== ENCOUNTER 2020-05-28 10:21 | Outpatient (RCR) | payer OTHER ==
[~2020-05-28] VITALS: Ht 185 cm; Wt 105.0 kg
[~2020-05-28 10:21] MED LIST: AMLO-332 PO; ASPI-983 PO; ATOR40TA PO; CETI10TA21 PO; IRBE150T23 PO; METO50TA7 PO; PANT40TA3 PO; VIT1CAPS44 PO
== END 2020-05-28 10:23 | disposition home or self-care (01) ==
LOC: PREOP 10:21
PROVIDERS: ATTEND Surgery
DX: Z01.818 Encounter for other preprocedural examination (principal)

== ENCOUNTER 2020-06-03 12:37 | Day surgery (SDC) | payer OTHER ==
[~2020-06-03] VITALS: Ht 185 cm; Wt 105.0 kg
[2020-06-03] MEDS ORDERED: LACTATED RINGERS 1,000 ML IV ONE (12:43)
[2020-06-03 12:45] VITALS: BP 137/87
[2020-06-03] MEDS ORDERED: LACTATED RINGERS 1,000 ML IV STA (12:47)
--- NOTE | 2020-06-03 13:10 | Progress Note-Pre Operative ---
Pre-Operative Progress Note H&P Reviewed The H&P was reviewed, patient examined and no changes noted. Date Seen by Provider: Jun 03, 2020 Time Seen by Provider: 13:10 Date H&P Reviewed: Jun 03, 2020 Time H&P Reviewed: 13:10 Pre-Operative Diagnosis: screening colonoscopy EVER KOHLI DO Jun 03, 2020 13:10
[2020-06-03] MEDS ORDERED: PROPOFOL INJECTION 50 ML IV ONE (13:16)
[2020-06-03] MEDS ORDERED: MIDAZOLAM 2 MG/2 ML (VERSED) VIAL ONE (13:17)
--- NOTE | 2020-06-03 13:59 | Progress Note-Post Operative ---
Post-Operative Progess Note Surgeon (s)/Tank Maker Wood (s) Surgeon EVER KOHLI DO Tank Maker Wood: na Pre-Operative Diagnosis screening colonoscopy Post-Operative Diagnosis colon polyp x 2 Procedure & Operative Findings Date of Procedure 06/03/20 Procedure Performed/Findings colonoscopy with hot bx polypectomy x 2 Anesthesia Type per service manager Estimated Blood Loss Estimated blood loss (mL): none Specimens/Packing Specimens Removed sigmoid polyp and rectal polyp EVER KOHLI DO Jun 03, 2020 13:59
[2020-06-03 14:00] VITALS: BP 110/76
--- NOTE | 2020-06-03 14:01 | Discharge Inst-Simple/Standard ---
Discharge Inst-Standard Patient Instructions/Follow Up Plan of Care/Instructions/FU: 2 weeks Sangeetha Activity as Tolerated: Yes Discharge Diet: Regular Diet EVER KOHLI DO Jun 03, 2020 14:01
--- OUTSIDE RECORDS SUMMARY | 2020-06-03 14:04 | XMS REPORT | Continuity of Care Document ---
Author Author [facility] Organization [employer] Address Unknown Phone Unavailable Allergies Active Description Code Type Severity Reaction Onset Reported/Identified Relationship to Patient Clinical Status Yes Sulfa (Sulfonamide Antibiotics) [id number] 0491 Drug Allergy Unknown N/A 019 Yes Sulfa (Sulfonamide Antibiotics) [id number] 0491 Drug Allergy Mild ITCHING 020 Medications There is no data. 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 5 HYPERLIPIDEMIA, UNSPECIFIED 08/06/2019 LAURA ROQUE MD Ot I10 ESSENTIAL (PRIMARY) HYPERTENSION 08/06/2019 LAURA ROQUE MD, Ot K21. 9 GASTRO-ESOPHAGEAL REFLUX DISEASE WITHOUT 08/06/2019 LAURA ROQUE MD, Ot R07. 9 CHEST PAIN, UNSPECIFIED 08/06/2019 LAURA ROQUE MD, Ot Z82. 49 FAMILY HX OF ISCHEM HEART DIS AND OTH DI 08/06/2019 LAURA ROQUE MD, Ot Z88. 2 ALLERGY STATUS TO SULFONAMIDES STATUS 08/06/2019 LAURA ROQUE MD, Ot Z90. 89 ACQUIRED ABSENCE OF OTHER ORGANS 08/06/2019 LAURA ROQUE MD, Ot E78. 5 HYPERLIPIDEMIA, UNSPECIFIED 08/06/2019 LAURA ROQUE MD Ot I10 ESSENTIAL (PRIMARY) HYPERTENSION 08/06/2019 LAURA ROQUE MD Ot K21. 9 GASTRO-ESOPHAGEAL REFLUX DISEASE WITHOUT 08/06/2019 LAURA ROQUE MD Ot R07. 9 CHEST PAIN, UNSPECIFIED 08/06/2019 LAURA ROQUE MD Ot Z82. 49 FAMILY HX OF ISCHEM HEART DIS AND OTH DI 08/06/2019 LAURA ROQUE MD Ot Z88. 2 ALLERGY STATUS TO SULFONAMIDES STATUS 08/06/2019 LAURA ROQUE MD Ot Z90. 89 ACQUIRED ABSENCE OF OTHER ORGANS 08/15/2019 LAURA ROQUE MD Ot E78. 5 HYPERLIPIDEMIA, UNSPECIFIED 08/15/2019 LAURA ROQUE MD Ot I10 ESSENTIAL (PRIMARY) HYPERTENSION 08/15/2019 LAURA ROQUE MD Ot K21. 9 GASTRO-ESOPHAGEAL REFLUX DISEASE WITHOUT 08/15/2019 LAURA ROQUE MD Ot R07. 9 CHEST PAIN, UNSPECIFIED 08/15/2019 LAURA ROQUE MD Ot Z82. 49 FAMILY HX OF ISCHEM HEART DIS AND OTH DI 08/15/2019 LAURA ROQUE MD Ot Z88. 2 ALLERGY STATUS TO SULFONAMIDES STATUS 08/15/2019 LAURA ROQUE MD Ot Z90. 89 ACQUIRED ABSENCE OF OTHER ORGANS 08/15/2019 LAURA ROQUE MD Ot E78. 5 HYPERLIPIDEMIA, UNSPECIFIED 08/15/2019 LAURA ROQUE MD Ot I10 ESSENTIAL (PRIMARY) HYPERTENSION 08/15/2019 LAURA ROQUE MD Ot K21. 9 GASTRO-ESOPHAGEAL REFLUX DISEASE WITHOUT 08/15/2019 LAURA ROQUE MD Ot R07. 9 CHEST PAIN, UNSPECIFIED 08/15/2019 LAURA ROQUE MD Ot Z82. 49 FAMILY HX OF ISCHEM HEART DIS AND OTH DI 08/15/2019 LAURA ROQUE MD Ot Z88. 2 ALLERGY STATUS TO SULFONAMIDES STATUS 08/15/2019 LAURA ROQUE MD Ot Z90. 89 ACQUIRED ABSENCE OF OTHER ORGANS Procedures There is no data. Results Test Result Range Complete blood count (CBC) with automate d white blood cell (WBC) differential - 08/04/19 21:32 Blood leukocytes automated count (number/volume) 8.1 10*3/uL 4.3-11.0 Blood erythrocytes automated count (number/volume) 4.76 10*6/uL 4.35-5.85 Venous blood hemoglobin measurement (mass/volume) 15.1 g/dL 13.3-17.7 Blood hematocrit (volume fraction) 43 % 40-54 Automated erythrocyte mean corpuscular volume 90 [ foz_us] 80-99 Automated erythrocyte mean corpuscular h emoglobin (mass per erythrocyte) 32 pg 25-34 Automated erythrocyte mean corpuscular h emoglobin concentration measurement (mass/volume) 35 g/dL 32-36 Automated erythrocyte distribution width ratio 13. 0 % 10.0- 14.5 Automated blood platelet count (count/volume) 297 10*3/uL 130-400 Automated blood platelet mean volume measurement 8.9 [foz_us] 7.4-10.4 Automated blood neutrophils/100 leukocytes 57 % 42-75 Automated blood lymphocytes/100 leukocytes 32 % 12-44 Blood monocytes/100 leukocytes 8 % 0-12 Automated blood eosinophils/100 leukocytes 3 % 0-10 Automated blood basophils/100 leukocytes 0 % 0-10 Blood neutrophils automated count (number/volume) 4.6 10*3 1.8-7.8 Blood lymphocytes automated count (number/volume) 2.6 10*3 1.0-4.0 Blood monocytes automated count (number/volume) 0. 6 10*3 0.0-1.0 Automated eosinophil count 0.3 10*3/uL 0 .0-0.3 Automated blood basophil count (count/volume) 0.0 10*3/uL 0.0-0.1 Comprehensive metabolic panel - 08/04/19 21:32 Serum or plasma sodium measurement (moles/volume) 139 mmol/L 135-145 Serum or plasma potassium measurement (moles/volume) 4.0 mmol/L 3.6-5.0 Serum or plasma chloride measurement (moles/volume) 102 mmol/L 98-107 Carbon dioxide 22 mmol/L 21-32 Serum or plasma anion gap determination (moles/volume) 15 mmol/L 5-14 Serum or plasma urea nitrogen measurement (mass/volume ) 19 mg/dL 7-18 Serum or plasma creatinine measurement (mass/volume) 1.06 mg/dL 0.60-1.30 Serum or plasma urea nitrogen/creatinine mass ratio 18 NRG Serum or plasma creatinine measurement w ith calculation of estimated glomerular filtration rate > NRG Serum or plasma glucose measurement (mass/volume) 102 mg/dL 70-105 Serum or plasma calcium measurement (mass/volume) 9.8 mg/dL 8.5-10.1 Serum or plasma total bilirubin measurement (mass/volu me) 0.4 mg/dL 0.1-1.0 Serum or plasma alkaline phosphatase irene surement (enzymatic activity/volume) 57 U/L 40-136 Serum or plasma aspartate aminotransfera se measurement (enzymatic activity/volume) 28 U/L 5-34 Serum or plasma alanine aminotransferase measurement (enzymatic activity/volume) 51 U/L 0-55 Serum or plasma protein measurement (mass/volume) 7.7 g/dL 6.4-8.2 Serum or plasma albumin measurement (mass/volume) 4.3 g/dL 3.2-4.5 CALCIUM CORRECTED 9.6 mg/dL 8.5-10.1 Magnesium - 08/04/19 21:32 Magnesium 2.1 mg/dL 1.6-2.4 Serum or plasma creatine kinase measurem ent (enzymatic activity/volume) - 08/04/19 21:32 Serum or plasma creatine kinase measurem ent (enzymatic activity/volume) 251 U/L 30-200 Serum or plasma creatine kinase MB measu rement (enzymatic activity/volume) - 08/04/19 21:32 Serum or plasma creatine kinase MB measu rement (enzymatic activity/volume) 5.9 ng/mL <6.6 Serum or plasma troponin i.cardiac measu rement (mass/volume) - 08/04/19 21:32 Serum or plasma troponin i.cardiac measurement (mass/v olume) < ng/mL <0.028 PT panel in platelet poor plasma by coag ulation assay - 08/04/19 21:32 Prothrombin time (PT) in platelet poor plasma by coagu lation assay 12.2 s 12.2-14.7 INR in platelet poor plasma or blood by coagulation as say 0.9 0.8-1.4 Activated partial thromboplastin time (a PTT) in platelet poor plasma bycoagulation assay - 08/04/19 21:32 Activated partial thromboplastin time (a PTT) in platelet poor plasma bycoagulation assay 30 s 24-35 Myoglobin, serum - 08/04/19 21:32 Myoglobin, serum 63.3 ng/mL 10.0-92.0 Serum or plasma amylase measurement (enz ymatic activity/volume) - 08/04/19 21:32 Serum or plasma amylase measurement (enzymatic activit y/volume) 73 U/L 25-125 Lipase - 08/04/19 21:32 Lipase 41 U/L 8-78 Serum or plasma lithium measurement (mol es/volume) - 08/04/19 21:32 BNP PT < 10.0 <100.0 Complete blood count (CBC) with automate d white blood cell (WBC) differential - 08/05/19 04:23 Blood leukocytes automated count (number/volume) 6.5 10*3/uL 4.3-11.0 Blood erythrocytes automated count (number/volume) 4.58 10*6/uL 4.35-5.85 Venous blood hemoglobin measurement (mass/volume) 14.0 g/dL 13.3-17.7 Blood hematocrit (volume fraction) 42 % 40-54 Automated erythrocyte mean corpuscular volume 91 [ foz_us] 80-99 Automated erythrocyte mean corpuscular h emoglobin (mass per erythrocyte) 31 pg 25-34 Automated erythrocyte mean corpuscular h emoglobin concentration measurement (mass/volume) 34 g/dL 32-36 Automated erythrocyte distribution width ratio 13. 2 % 10.0- 14.5 Automated blood platelet count (count/volume) 257 10*3/uL 130-400 Automated blood platelet mean volume measurement 8.8 [foz_us] 7.4-10.4 Automated blood neutrophils/100 leukocytes 63 % 42-75 Automated blood lymphocytes/100 leukocytes 27 % 12-44 Blood monocytes/100 leukocytes 8 % 0-12 Automated blood eosinophils/100 leukocytes 3 % 0-10 Automated blood basophils/100 leukocytes 0 % 0-10 Blood neutrophils automated count (number/volume) 4.1 10*3 1.8-7.8 Blood lymphocytes automated count (number/volume) 1.7 10*3 1.0-4.0 Blood monocytes automated count (number/volume) 0. 5 10*3 0.0-1.0 Automated eosinophil count 0.2 10*3/uL 0 .0-0.3 Automated blood basophil count (count/volume) 0.0 10*3/uL 0.0-0.1 PT panel in platelet poor plasma by coag ulation assay - 08/05/19 04:23 Prothrombin time (PT) in platelet poor plasma by coagu lation assay 13.7 s 12.2-14.7 INR in platelet poor plasma or blood by coagulation as say 1.0 0.8-1.4 Activated partial thromboplastin time (a PTT) in platelet poor plasma bycoagulation assay - 08/05/19 04:23 Activated partial thromboplastin time (a PTT) in platelet poor plasma bycoagulation assay 39 s 24-35 Comprehensive metabolic panel - 08/05/19 04:23 Serum or plasma sodium measurement (moles/volume) 140 mmol/L 135-145 Serum or plasma potassium measurement (moles/volume) 4.0 mmol/L 3.6-5.0 Serum or plasma chloride measurement (moles/volume) 106 mmol/L 98-107 Carbon dioxide 24 mmol/L 21-32 Serum or plasma anion gap determination (moles/volume) 10 mmol/L 5-14 Serum or plasma urea nitrogen measurement (mass/volume ) 15 mg/dL 7-18 Serum or plasma creatinine measurement (mass/volume) 0.85 mg/dL 0.60-1.30 Serum or plasma urea nitrogen/creatinine mass ratio 18 NRG Serum or plasma creatinine measurement w ith calculation of estimated glomerular filtration rate > NRG Serum or plasma glucose measurement (mass/volume) 102 mg/dL 70-105 Serum or plasma calcium measurement (mass/volume) 8.9 mg/dL 8.5-10.1 Serum or plasma total bilirubin measurement (mass/volu me) 0.4 mg/dL 0.1-1.0 Serum or plasma alkaline phosphatase irene surement (enzymatic activity/volume) 50 U/L 40-136 Serum or plasma aspartate aminotransfera se measurement (enzymatic activity/volume) 22 U/L 5-34 Serum or plasma alanine aminotransferase measurement (enzymatic activity/volume) 44 U/L 0-55 Serum or plasma protein measurement (mass/volume) 6.3 g/dL 6.4-8.2 Serum or plasma albumin measurement (mass/volume) 3.8 g/dL 3.2-4.5 CALCIUM CORRECTED 9.1 mg/dL 8.5-10.1 Serum or plasma creatine kinase measurem ent (enzymatic activity/volume) - 08/05/19 04:23 Serum or plasma creatine kinase measurem ent (enzymatic activity/volume) 199 U/L 30-200 Serum or plasma troponin i.cardiac measu rement (mass/volume) - 08/05/19 04:23 Serum or plasma troponin i.cardiac measurement (mass/v olume) < ng/mL <0.028 Myoglobin, serum - 08/05/19 04:23 Myoglobin, serum 65.1 ng/mL 10.0-92.0 Lipid 1996 panel - 08/05/19 04:23 Serum or plasma triglyceride measurement (mass/volume) 178 mg/dL <150 Serum or plasma cholesterol measurement (mass/volume) 184 mg/dL < 200 Serum or plasma cholesterol in HDL measurement (mass/v olume) 38 mg/dL 40-60 Cholesterol in LDL [mass/volume] in serum or plasma by direct assay 128 mg/dL 1-129 Serum or plasma cholesterol in VLDL measurement (mass/ volume) 36 mg/dL 5-40 Complete urinalysis with reflex to cultu re - 08/05/19 07:00 Urine color determination YELLOW NRG Urine clarity determination CLEAR NR G Urine pH measurement by test strip 6 5-9 Specific gravity of urine by test strip 1.020 1.016-1.022 Urine protein assay by test strip, semi-quantitative NEGATIVE NEGATIVE Urine glucose detection by automated test strip NE GATIVE NEGATIVE Erythrocytes detection in urine sediment by light micr oscopy NEGATIVE NEGATIVE Urine ketones detection by automated test strip NE GATIVE NEGATIVE Urine nitrite detection by test strip NEGATIVE NEGATIVE Urine total bilirubin detection by test strip NEGA TIVE NEGATIVE Urine urobilinogen measurement by automated test strip (mass/volume) NORMAL NORMAL Urine leukocyte esterase detection by dipstick NEG ATIVE NEGATIVE Automated urine sediment erythrocyte cou nt by microscopy (number/high power field) NONE NRG Automated urine sediment leukocyte count by microscopy (number/high power field) NONE NRG Bacteria detection in urine sediment by light microsco py NEGATIVE NRG Squamous epithelial cells detection in u rine sediment by light microscopy RARE NRG Crystals detection in urine sediment by light microsco py NONE NRG Casts detection in urine sediment by light microscopy NONE NRG Mucus detection in urine sediment by light microscopy NEGATIVE NRG Complete urinalysis with reflex to culture NO NRG Other elements identification in urine sediment by lig ht microscopy FEW SPERM NRG Encounters ACCT No. Visit Date/Time Discharge Status Pt. Type Provider Facility Loc./Unit Complaint [id number] 05/28/2020 10:21:00 020 10:23:00 DIS Outpatient EVER KOHLI DO [facility] PREOP SCREENING [id number] 08/04/2019 23:40:00 019 18:06:00 DIS Inpatient JUDE MCCRARY, LAURA Staples [facility] CSD CHEST PAIN, HTN [id number] 07/14/2015 08:07:00 015 23:59:59 CLS Outpatient RICHY WESTFALL APRN [facility] RAD CERVICAL RADICU LOPATHY [id number] 06/10/2015 15:50:00 015 23:59:59 CLS Outpatient RICHY WESTFALL APRN [facility] RAD NECK/LEFT ARM P AIN/WEEKNESS [id number] 06/03/2020 13:00:00 P EN Preadmit EVER OKHLI DO [facility] ENDO SCREENING [id number] 01/20/2012 09:56:00 Document Registration
[2020-06-03 14:05] VITALS: BP 111/73
[2020-06-03 14:10] VITALS: BP 111/73
--- NOTE | 2020-06-03 14:22 | Anesthesia-General Post-Op ---
MAC Patient Condition Mental Status/LOC: Same as Preop Cardiovascular: Satisfactory Nausea/Vomiting: Absent Respiratory: Satisfactory Pain: Controlled Complications: Absent Post Op Complications Complications None Follow Up Care/Instructions Patient Instructions None needed. Anesthesiology Discharge Order Discharge Order Patient is doing well, no complaints, stable vital signs, no apparent adverse anesthesia problems. No complications reported per nursing. REMBERTO BUTLER CRNA Jun 03, 2020 14:22
[2020-06-03 14:40] VITALS: BP 124/86
[2020-06-03 14:50] VITALS: BP 124/86
--- NOTE | 2020-06-03 21:30 | OPERATIVE REPORT ---
DATE OF SERVICE: 06/03/2020 PREOPERATIVE DIAGNOSIS: Screening colonoscopy. POSTOPERATIVE DIAGNOSIS: Colon polyps. PROCEDURE: Colonoscopy with hot biopsy polypectomy x2. SURGEON: Ever Vivas DO ANESTHESIA: Per RADIO RIGGER. ESTIMATED BLOOD LOSS: None. COMPLICATIONS: None. INDICATIONS: The patient is a 59-year-old male due for screening colonoscopy. He understands risks and benefits of procedure and wished to proceed with procedure. Consent was signed in the chart. DESCRIPTION OF PROCEDURE: The patient was taken to the endoscopy suite, placed in left lateral recumbent position. Timeout was performed. Digital rectal exam was performed. There were no palpable polyps, masses or ulcerations. Scope was inserted in the rectum, advanced all the way to cecum with minimal difficulty. Prep was adequate. Scope was then slowly retracted back. There were no polyps, masses or ulcerations of the cecum, ascending, transverse, descending colon. In sigmoid colon, a small polyp was present, which hot biopsy polypectomy was performed. Scope was then continuously retracted back into the rectum where another polyp was present, which hot biopsy polypectomy was performed in the rectum. Scope was then retroflexed noting no other pathology. Scope returned to its normal position, slowly withdrawn until completely removed. The patient tolerated procedure well without any complications and taken to recovery room in stable condition. RECOMMENDATIONS: The patient will need repeat colonoscopy in 5 years. If he has any issues before that be seen at that time. The patient will follow up in the office in 2 weeks to discuss pathology results and see how he is doing at that time. Job ID: [id number] DocumentID: [id number] Dictated Date: 06/03/2020 16:35:25 Zoogler Date: 06/03/2020 21:28:45 Dictated By: EVER VIVAS DO
== END 2020-06-03 14:50 | disposition home or self-care (01) ==
LOC: ENDO 12:37
PROVIDERS: ATTEND Surgery
DX: Z12.11 Encounter for screening for malignant neoplasm of colon (principal); K63.5 Polyp of colon; Z79.02 Long term (current) use of antithrombotics/antiplatelets; I10 Essential (primary) hypertension; E78.5 Hyperlipidemia, unspecified; Z79.82 Long term (current) use of aspirin; Z79.899 Other long term (current) drug therapy

== ENCOUNTER → 2020-07-01 | Emergency (ER) | payer OTHER ==
[~2020-07-01] VITALS: Ht 185.4 cm; Wt 106.5 kg
[~2020-07-01] MED LIST changes: +ASPI-1238 PO; -ASPI-983 PO
--- NOTE | 2020-07-01 14:56 | ED Lower Extremity ---
General Chief Complaint: Lower Extremity Stated Complaint: POSSIBLE DVT RIGHT LEG History of Present Illness Date Seen by Provider: Jul 01, 2020 Time Seen by Provider: 14:30 Initial Comments 60-year-old male presents with cramping and not in his right calf. He reports approximately 3 weeks ago he had an injury to his low back. Since then he's been having intermittent right knee pain and noted swelling in his right lower extremity. Today he was noticing pain in his right calf and began massagin g it when a knot was noted. He has no history of DVTs. He is not on anticoagulants but does take aspirin 81 mg daily. No prolonged sitting or surgeries recently Onset: last week Pain/Injury Location: right ankle Method of Injury: unknown Allergies and Home Medications Allergies Coded Allergies: Sulfa (Sulfonamide Antibiotics) (Verified Allergy, Mild, ITCHING, 05/28/20) Home Medications Aspirin 81 Mg Tablet.dr, 81 MG PO HS, (Reported) Atorvastatin Calcium 40 Mg Tablet, 40 MG PO DAILY Prescribed by: LAURA ROQUE on 08/06/191806 Cetirizine HCl 10 Mg Tablet, 10 MG PO DAILY, (Reported) Irbesartan 150 Mg Tablet, 150 MG PO DAILY, (Reported) Vit C/E/Zn/Coppr/Lutein/Zeaxan 1 Each Capsule, 1 CAP PO BID, (Reported) Patient Home Medication List Home Medication List Reviewed: Yes Review of Systems Constitutional: no symptoms reported, see HPI Musculoskeletal: see HPI, muscle pain (right calf) All Other Systems Reviewed Negative Unless Noted: Yes Past Aqtmwgp-Znpvtw-Vmluza Hx Past Med/Social Hx: Reviewed Nursing Past Med/Soc Hx Patient Social History 2nd Hand Smoke Exposure: No Recent Foreign Travel: No Contact w/Someone Who Travel: No Recent Hopitalizations: No Immunizations Up To Date Date of Influenza Vaccine: Jul 22, 2019 Seasonal Allergies Seasonal Allergies: Yes Past Medical History Surgeries: Yes (BILATERAL INGUINAL HERNIA REPAIR) Appendectomy Respiratory: No Cardiac: Yes Hypertension Neurological: No Sexually Transmitted Disease: No HIV/AIDS: No Genitourinary: No Gastrointestinal: Yes Abdominal Hernia Musculoskeletal: No Endocrine: No HEENT: Yes (GLASSES) Macular Degeneration Loss of Vision: Denies Hearing Impairment: Denies Cancer: No Psychosocial: No Integumentary: No Blood Disorders: No Adverse Reaction/Blood Tranf: No (N/A) Family Medical History Coronary artery disease Physical Exam Vital Signs Vital Signs - First Documented 07/01/20 14:28 Temp 36.8 Pulse 60 Resp 14 B/P (MAP) 145/107 (120) Pulse Ox 95 O2 Delivery Room Air Capillary Refill : Height, Weight, BMI Height: '" Weight: lbs. oz. kg; 30.67 BMI Method: General Appearance: WD/WN, no apparent distress Cardiovascular: normal peripheral pulses, regular rate, rhythm Respiratory: chest non-tender, lungs clear, normal breath sounds Gastrointestinal: normal bowel sounds, non tender, soft Ankles: right ankle non-tender; bilateral ankle swelling (right greater than left); right ankle other (negative Homans sign, pain with palpation and tendern ess noted to right mid calf. Pedal pulses 2+ and symmetric, cap refill immediate.) Neurologic/Tendon: normal sensation, normal motor functions, normal tendon functions Neurologic/Psychiatric: no motor/sensory deficits, alert, normal mood/affect, oriented x 3 Progress/Results/Core Measures Results/Orders My Orders Orders - DIRK GEORGE Us Venous Lower Ext Rt (07/01/20 14:47) Vital Signs/I&O 07/01/20 14:28 Temp 36.8 Pulse 60 Resp 14 B/P (MAP) 145/107 (120) Pulse Ox 95 O2 Delivery Room Air Diagnostic Imaging Diagonstic Imaging: Ultrasound Plain Films/CT/US/NM/MRI: leg Comments NAME: JORGE LUIS ZUNIGA [facility] REC#: [id number] PT STATUS: REG ER : 1960 PHYSICIAN: DIRK GEORGE ADMIT DATE: 07/01/20/ER Signed Date of Exam:07/01/20 US VENOUS LOWER EXT RT PROCEDURE: US right lower extremity venous. TECHNIQUE: Multiple real-time grayscale images were obtained over the right lower extremity in various projections. Additional spectral analysis and color Doppler duplex images were also obtained. INDICATION: Leg pain and swelling. COMPARISON: There are no prior studies available for comparison. FINDINGS: There is generally good blood flow and compressibility at all levels of the deep venous system. There is no sign of a deep venous thrombosis. During the course of the exam, an area of slightly altered echogenicity was seen in the calf musculature. This measures approximately 6.3 x 1.3 x 5.9 cm. This may represent an area of edema/inflammation. IMPRESSION: 1. There is no evidence for a deep venous thrombosis. 2. The area of altered echogenicity within the calf musculature does suggest edema/inflammation clinical follow-up is recommended.. Dictated by: Dictated on workstation # [id number] Dict: 07/01/20 1609 Trans: 07/01/20 1705 [id number] [id number] Interpreted by: GIAN HOWE MD Electronically signed by: GIAN HOWE MD 07/01/201704 Departure Impression Primary Impression: Gastrocnemius muscle strain Qualified Codes: S86.111A - Strain of other muscle(s) and tendon(s) of posterior muscle group at lower leg level, right leg, initial encounter Additional Impression: Hematoma of right lower leg Disposition: 01 HOME, SELF-CARE Condition: Improved Departure-Patient Inst. Decision time for Depature: 15:50 Referrals: SARAH FRANCIS MD (PCP) Primary Care Physician Patient Instructions: Muscle Strain (DC) Add. Discharge Instructions: Alternate heat and ice to your right calf for 20 minutes at a time. Take ibuprofen 600 mg every 8 hours. Follow-up with Dr. Francis. Continue to take aspirin 81 mg daily. Return to the emergency department for new, urgent health care needs. All discharge instructions reviewed with patient and/or family. Voiced understanding. DIRK GEORGE Jul 01, 2020 14:56
[2020-07-01 16:08] VITALS: BP 135/95
--- NOTE | 2020-07-01 16:08 | NUR ---
PT VD 135/95, 96% RA, 61 HR, 14 RESP. PT AMBULATORY TO EXIT.
--- NOTE | 2020-07-01 16:17 | Diagnostic Imaging Report ---
PROCEDURE: US right lower extremity venous. TECHNIQUE: Multiple real-time grayscale images were obtained over the right lower extremity in various projections. Additional spectral analysis and color Doppler duplex images were also obtained. INDICATION: Leg pain and swelling. COMPARISON: There are no prior studies available for comparison. FINDINGS: There is generally good blood flow and compressibility at all levels of the deep venous system. There is no sign of a deep venous thrombosis. During the course of the exam, an area of slightly altered echogenicity was seen in the calf musculature. This measures approximately 6.3 x 1.3 x 5.9 cm. This may represent an area of edema/inflammation. IMPRESSION: 1. There is no evidence for a deep venous thrombosis. 2. The area of altered echogenicity within the calf musculature does suggest edema/inflammation clinical follow-up is recommended.. Dictated by: Dictated on workstation # [id number]
== END ==
LOC: EDUNIT# 13:55 → ER 13:57
DX: S86.811A Strain of other muscle(s) and tendon(s) at lower leg level, right leg, initial encounter (principal); S80.11XA Contusion of right lower leg, initial encounter; I10 Essential (primary) hypertension; Z88.2 Allergy status to sulfonamides; Z79.82 Long term (current) use of aspirin; X58.XXXA Exposure to other specified factors, initial encounter

== ENCOUNTER 2021-10-23 10:44 | Outpatient (CLI) | payer OTHER ==
[~2021-10-23] VITALS: Ht 185.5 cm; Wt 109.1 kg
[~2021-10-23 10:44] MED LIST changes: -CETI10TA21 PO; +CETI10TA49 PO; -PANT40TA3 PO; +PANT40TA52 PO
[2021-10-23 10:45] VITALS: BP 159/85
[2021-10-23] MEDS ORDERED: diphenhydrAMINE 50 MG/ML INJ (BENADRYL) IV PRN (11:15)
[2021-10-23] MEDS ORDERED: SOTROVIMAB 500 MG/NS 100 ML IVPB IV ONE ×2 (11:15)
[2021-10-23] MEDS ORDERED: ACETAMINOPHEN 500 MG TAB (TYLENOL) PO PRN (11:15)
[2021-10-23] MEDS ORDERED: ONDANSETRON 4 MG/2 ML (SDV) Z0FRAN IV PRN (11:15)
[2021-10-23] MEDS ORDERED: EPINEPHrine INJECTION 1 MG/ML AMP IM PRN (11:15)
[2021-10-23 12:06] VITALS: BP 128/80
== END 2021-10-23 12:46 | disposition home or self-care (01) ==
LOC: INFUSION 10:44
PROVIDERS: ATTEND Nurse Practitioner Family
DX: U07.1 COVID-19 (principal)

== ENCOUNTER → 2022-07-05 | Outpatient (CLI) | payer OTHER ==
--- NOTE | 2022-07-05 17:36 | Diagnostic Imaging Report ---
INDICATION: Neck pain. COMPARISON: None FINDINGS: Frontal, lateral, and open-mouth radiographic views of the cervical spine were obtained. Cervical spine is seen down to C7-T1 level on the lateral view. Evaluation of static alignment shows reversal of normal lordotic curvature epicentered at C4 level. There is no evidence of jumped facets. Open-mouth view shows normal C1-C2 alignment. Vertebral body heights are maintained. There is no acute fracture. There are advanced multilevel degenerative changes consistent with intervertebral disc height loss as well as multilevel anterior and posterior endplate osteophyte formations. These changes are greatest at the C5-C6 level. Surrounding soft tissue structures are unremarkable. Included portions of the lung apices are clear. IMPRESSION: 1. No acute fracture or dislocation of the cervical spine. 2. Advanced multilevel degenerative changes, greatest at C5-C6. Dictated by: Dictated on workstation # [id number]
== END ==
LOC: RAD 14:31
PROVIDERS: ATTEND Physician Assistant
DX: M47.812 Spondylosis without myelopathy or radiculopathy, cervical region (principal)
CPT/HCPCS: 72040